=== PATIENT | male | born 1955 | race Caucasian/White ===

== ENCOUNTER 2018-03-27 09:43 | Day surgery (SDC) | payer OTHER ==
[~2018-03-27 09:43] MED LIST: Aspirin EC81 MG; Multiple Vitam1 EAC1 PO; NAPROXEN SODIU220 MG PO
[2018-03-27 11:41] LABS: Performing Lab VERACYTE; Test Name FNA
== END 2018-03-27 22:48 | disposition home or self-care (01) ==
LOC: US 09:43
PROVIDERS: Physician Assistant Surgical
PROC: 0GBH3ZX Excision of Right Thyroid Gland Lobe, Percutaneous Approach, Diagnostic (ICD-10-PCS; principal; 2018-03-27)
DX: E04.1 Nontoxic single thyroid nodule (principal)
CPT/HCPCS: 10022; 76942

== ENCOUNTER 2018-06-29 08:32 | Day surgery (SDC) | payer OTHER ==
[~2018-06-29] VITALS: Ht 175.3 cm; Wt 75.0 kg
[2018-06-29] MEDS ORDERED: TAMS.4ER (09:05)
[2018-06-29] MEDS ORDERED: CELE100 (09:06)
== END 2018-06-29 10:57 | disposition home or self-care (01) ==
LOC: ORSCSDS 08:32
PROVIDERS: Internal Medicine Gastroenterology
PROC: 0DBK8ZX Excision of Ascending Colon, Via Natural or Artificial Opening Endoscopic, Diagnostic (ICD-10-PCS; principal; 2018-06-29 10:00)
PROC: 0DBM8ZX Excision of Descending Colon, Via Natural or Artificial Opening Endoscopic, Diagnostic (ICD-10-PCS; principal; 2018-06-29 10:00)
PROC: 0DBC8ZX Excision of Ileocecal Valve, Via Natural or Artificial Opening Endoscopic, Diagnostic (ICD-10-PCS; principal; 2018-06-29 10:00)
DX: Z12.11 Encounter for screening for malignant neoplasm of colon (principal); D12.2 Benign neoplasm of ascending colon; D12.4 Benign neoplasm of descending colon; K57.30 Diverticulosis of large intestine without perforation or abscess without bleeding; E78.5 Hyperlipidemia, unspecified; Z83.71 Family history of colonic polyps; K64.8 Other hemorrhoids; Z79.899 Other long term (current) drug therapy
CPT/HCPCS: 88305; J0330; J1980; J2405; J7120

== ENCOUNTER → 2019-11-01 | Outpatient (CLI) | payer OTHER ==
[~2019-11-01] MED LIST changes: +CELE100; +TAMS.4ER
== END ==
LOC: PLD 07:34 → LAB SHORT 07:34
DX: C44.519 Basal cell carcinoma of skin of other part of trunk (principal); L82.1 Other seborrheic keratosis
CPT/HCPCS: 88305

== ENCOUNTER → 2020-05-07 | Outpatient (CLI) | payer OTHER | END | disposition home or self-care (01) | LOC: PLD 08:44 → LAB SHORT 08:44 | DX: L82.1 Other seborrheic keratosis (principal) | CPT/HCPCS: 88305 ==

== ENCOUNTER 2022-02-01 09:07 | Day surgery (SDC) | payer OTHER ==
[~2022-02-01] VITALS: Ht 175.3 cm; Wt 76.7 kg
[2022-02-01] MEDS ORDERED: ACET500 PO (09:56)
[2022-02-01] MEDS ORDERED: TADA10TA (09:57)
--- NOTE | 2022-02-01 10:05 | NUR ---
02/01/22 Norma5 Marielle Martinez CALL LIGHT WITHIN REACH. FAMILY AT BEDSIDE. PT TEMP THIS AM IN PRE-OP IS 101.9 TEMPORAL AND 100.7 ORALLY. RECHECKED AGAIN AT 0945 AND TEMPORAL TEMP 101.[address] WEBB AND DR. CHIRINOS AWARE WILL AWAIT FURTHER ORDERS. PT DENIES ANY SYMPTOMS OF FEVER OR ANY ABD PROBLEMS.
[2022-02-01 11:39] LABS: Automated BF RBC Count 0.008 M/mm3 (0-0); Automated BF WBC Count 0.344 K/mm3 (0-999); Body Fluid WBC Count 344 /mm3 (0-999); RBC Count, Body Fluid 8000 /mm3 (0-0)
--- NOTE | 2022-02-01 11:42 | NUR ---
02/01/22 1142 Lorie Wheat 1 MG EPI ADDED TO EACH OF THE FIRST 3 BAGS OF LR PER ORDER.
[2022-02-01 12:17] LABS: Appearance, Body Fluid Hazy (Clear); Color, Body Fluid Amber (None-Yellow); Total Cell Count, Body Fluid 100
== END 2022-02-01 13:35 | disposition home or self-care (01) ==
LOC: ORSCSDS 09:07
PROVIDERS: Orthopaedic Surgery
PROC: 0LS34ZZ Reposition Right Upper Arm Tendon, Percutaneous Endoscopic Approach (ICD-10-PCS; principal; 2022-02-01 10:30)
PROC: 0RNJ4ZZ Release Right Shoulder Joint, Percutaneous Endoscopic Approach (ICD-10-PCS; principal; 2022-02-01 10:30)
PROC: 0LQ14ZZ Repair Right Shoulder Tendon, Percutaneous Endoscopic Approach (ICD-10-PCS; principal; 2022-02-01 10:30)
DX: M75.111 Incomplete rotator cuff tear or rupture of right shoulder, not specified as traumatic (principal); M75.21 Bicipital tendinitis, right shoulder; M75.41 Impingement syndrome of right shoulder; Z79.899 Other long term (current) drug therapy; Z79.82 Long term (current) use of aspirin
CPT/HCPCS: 87070; 87075; 87205; 89051; C1713; J0171; J0690; J1100; J1885; J2250; J2405; J2704; J2795; J3010; J7120

== ENCOUNTER → 2022-02-04 | Outpatient (CLI) | payer OTHER ==
[~2022-02-04] MED LIST changes: +ACET500 PO; +TADA10TA
[2022-02-04 11:44] LABS: Hemoglobin 14.3 g/dL (13.5-17.5); Mean Corpuscular HGB 31.6 pg (26.0-34.0); Mean Corpuscular HGB Conc 34.9 g/dL (31.5-36.5); Mean Corpuscular Volume 91 fL (80-100); RDW Coefficient Variation 13.4 % (11.7-14.2); RDW Standard Deviation 44.7 fL (35.1-46.3); Red Blood Cell Count 4.52 M/mm3 (4.30-5.90); White Blood Cell Count 4.21 K/mm3 (4.00-11.30)
[2022-02-04 11:53] LABS: Albumin, Blood 3.4 g/dL (3.4-5.0); Albumin/Globulin Ratio 0.9 (0.8-1.8); Bilirubin, Total 0.5 mg/dL (0.1-1.0); Bun/Creatinine Ratio 9.1 (12.0-20.0); Calcium, Blood 8.5 mg/dL (8.5-10.1); Creatinine, Blood 1.21 mg/dL (0.60-1.20); Globulin, Blood 3.6 g/dL (2.2-4.0); Potassium, Blood 4.1 mmol/L (3.5-5.5)
[2022-02-04 12:40] LABS: Mean Platelet Volume 11.2 fL (9.1-12.4); Platelet Count 137 K/mm3 (150-400)
[2022-02-04 12:48] LABS: BAND PERCENT MAN 16 % (0-8); BASOPHILS PERCENT MAN 0 % (0-2); EOSINOPHILS ABSOLUTE MAN 0.08 K/mm3 (0.00-0.68); EOSINOPHILS PERCENT MAN 2 % (0-6); LYMPHOCYTES ABSOLUTE MAN 0.37 K/mm3 (0.84-5.20); LYMPHOCYTES PERCENT MAN 9 % (21-46); MONOCYTES ABSOLUTE MAN 0.16 K/mm3 (0.16-1.47); MONOCYTES PERCENT MAN 4 % (4-13); NEUTROPHILS ABSOLUTE MAN 3.57 K/mm3 (1.96-9.15); SEG NEUTROPHILS PERCENT MAN 69 % (41-73); TOTAL CELLS COUNTED 100
== END ==
LOC: LAB SHORT 11:37
PROVIDERS: General Practice
DX: R50.9 Fever, unspecified (principal); R39.198 Other difficulties with micturition; J02.9 Acute pharyngitis, unspecified
CPT/HCPCS: 80053; 85025; 87081; 87086

== ENCOUNTER → 2022-02-22 | Outpatient (CLI) | payer OTHER | END | disposition home or self-care (01) | LOC: LAB 08:22 → LAB SHORT 08:22 | DX: L82.1 Other seborrheic keratosis (principal) | CPT/HCPCS: 88305 ==

== ENCOUNTER 2024-05-16 03:07 | Day surgery (SDC) | payer OTHER ==
[~2024-05-16 03:07] MED LIST changes: -TADA10TA; +TADA10TA PO
[2024-05-16 08:38] VITALS: BP 111/66
[2024-05-16] MEDS ORDERED: TAMSULOSIN HCL0.4 M1 PO (10:20)
[2024-05-16] MEDS ORDERED: NAPROSYN500 MG PO (10:24)
[2024-05-16] MEDS ORDERED: MULVITA PO (10:25)
[2024-05-16] MEDS ORDERED: MINOXIDIL (10:26)
== END 2024-05-16 08:55 | disposition home or self-care (01) ==
LOC: ATC 03:07
DX: N40.0 Benign prostatic hyperplasia without lower urinary tract symptoms (principal); N18.31 Chronic kidney disease, stage 3a; E78.5 Hyperlipidemia, unspecified
CPT/HCPCS: 51798